=== PATIENT | female | born 1950 | race Caucasian/White ===

== ENCOUNTER 2017-12-28 07:22 | Inpatient (IN) | payer MEDICARE, OTHER ==
[2017-12-28] VITALS (7 sets, daily range): BP systolic 142–166; BP diastolic 60–73
[~2017-12-28] VITALS: Ht 167.6 cm; Wt 88.2 kg
--- NOTE | ~2017-12-28 | PR ---
[place], [place] PROGRESS NOTE [id number] UNIT #: [id number] ROOM: 416 DOCTOR: FILIBERTO ALLISON MD BIRTHDATE: [birth year] DOS: 12/29/2017 CARDIOLOGY PROGRESS NOTE SUBJECTIVE: The patient was seen at her bedside today 12/29/2017 for followup of an acute exacerbation of chronic systolic congestive heart failure. She is a 67-year-old woman who has a long history of dilated cardiomyopathy. I have reviewed records from her physician [facility] [place], Dr. Quiroz, who states that she had an ejection fraction of 45% earlier this year. She went on vacation in [place] and developed heart failure. Her ejection fraction was 25%. She did undergo catheterization and he reports that she had no coronary disease. She was placed on guideline-directed medical therapy, but her ejection fraction and heart failure did not improve dramatically, so recently, she was placed on Entresto. She was doing reasonably well until the current admission. She was at a green party and ate a lot of salty foods. She developed increased heart failure symptoms and came to the hospital for management. Overnight, she has diuresed and is breathing much better. I also recommended that her Entresto dose be increased. PHYSICAL EXAMINATION: VITAL SIGNS: Her pulse is 81 and regular, blood pressure 155/51. She is afebrile. NECK: Supple. She has no jugular distention. Carotids are full. LUNGS: Respirations are unlabored. Chest is clear. HEART: Has a regular rhythm. She has an S4 gallop. I did not hear an S3. ABDOMEN: Soft and normally active. EXTREMITIES: Showed no edema. IMPRESSION: 1. Acute on chronic systolic congestive heart failure. Exacerbation was likely triggered by dietary indiscretion over the last 24 hours. 2. Dilated cardiomyopathy, presumably nonischemic based on the patient's report and a report of her zipper slide attacher regarding a catheterization that she had in [place]. 3. Chronic left bundle-branch block. 4. Ejection fraction reportedly between 25 and 30%. 5. Essential hypertension. 6. Hyperlipidemia. 7. Type 2 diabetes mellitus. PLAN: I am told that overnight her monitor showed a change. She has a left bundle-branch block. Monitored tracings are notoriously unreliable for ST changes. The subsequent EKG did not show any changes. Even if it had, left bundle-branch block will not allow specific diagnostic conclusions regarding ischemia. They did check troponin levels, which were normal. From my perspective, she may be discharged to home on her previous dose of diuretic, but on a larger dose of Entresto. I did ask her to follow up with her zipper slide attacher at the [facility] in [place] and we will remain available to see [place], [place] PROGRESS NOTE NAME: NANDINI SCHWAB UNIT #: [id number] ROOM: [facility] DOCTOR: FILIBERTO ALLISON MD BIRTHDATE: [birth year] her if needed. I thank the hospitalist physicians for asking our advice regarding her care. FILIBERTO ALLISON MD CM:PNTRANS 11 [id number] FILIBERTO ALLISON MD 12/29/171907 interface
--- NOTE | ~2017-12-28 | EKG ---
[place], [place] ELECTROCARDIOGRAM REPORT NAME: NANDINI SCHWAB UNIT #: [id number] ROOM: 416 DOCTOR: JAMES DRAFT REPORT BIRTHDATE: [birth year] [facility] Test Date: 2017-12-28 Test Time: 10:37:57 Pat Name: NANDINI SCHWAB Department: Room: 416 Gender: F Food Service Technician: Kenzie Nam : 1950 Requested By: DANIEL WORTHY Order Number: [id number] Reading MD: Olvin Allen MD Measurements Intervals [place] Rate: 72 P: 51 VT: 173 QRS: -21 QRSD: 179 T: 116 QT: 455 QTc: 499 Interpretive Statements Sinus rhythm Probable left atrial enlargement Left bundle branch block Compared to previous tracing this date Sinus tachycardia is no longer present Electronically Signed On 12-28-2017 19:09:39 PDT by Olvin Allen MD CM:EKGRPT:ELECTROCARDIOGRAM REPORT [id number] DANIEL MAYO DRAFT REPORT DANIEL WORTHY DO
--- NOTE | ~2017-12-28 | EKG ---
[place], [place] ELECTROCARDIOGRAM REPORT NAME: NANDINI SCHWAB UNIT #: [id number] ROOM: 416 DOCTOR: JAMES DRAFT REPORT BIRTHDATE: [birth year] [facility] Test Date: 2017-12-28 Test Time: 13:20:27 Pat Name: NANDINI SCHWAB Department: Room: 416 Gender: F Cda Teacher: Kenzie Nam : 1950 Requested By: DANIEL WORTHY Order Number: [id number] Reading MD: Olvin Allen MD Measurements Intervals [place] Rate: 74 P: 23 HI: 182 QRS: -20 QRSD: 177 T: 112 QT: 450 QTc: 500 Interpretive Statements Sinus rhythm Probable left atrial enlargement Left bundle branch block No change from earlier ECG this date. Electronically Signed On 12-28-2017 19:12:47 PDT by Olvin Allen MD CM:EKGRPT:ELECTROCARDIOGRAM REPORT [id number] DANIEL MAYO DRAFT REPORT DANIEL WORTHY DO
--- NOTE | ~2017-12-28 | CON ---
[place], [place] REPORT OF CONSULTATION NAME: NANDINI SCHWAB UNIT #: [id number] ROOM: 416 DOCTOR: FILIBERTO ALLISON MD BIRTHDATE: [birth year] DOS: 12/28/2017 REASON FOR CONSULTATION: Dyspnea and chest discomfort. HISTORY OF PRESENT ILLNESS: The patient is a 67-year-old woman who is previously unknown to [facility]. She states that she was in her normal state of health until 07/2017. While on vacation in [place] she developed chest discomfort and was hospitalized. An echocardiogram reportedly showed poor left ventricular function. Catheterization was performed and the patient was told that she did not have any coronary disease. She returned to the local area and is followed by Dr. Quiroz at the [facility]. She has been placed on guideline directed medical therapy for poor LV function and plans are being made for her to undergo placement of a defibrillator in the future. The patient was doing well until yesterday. She was at a republican and ate a lot of salty food. She felt that she could "cheat for 1 day." She awakened at 4:00 a.m. with dyspnea and chest discomfort and presented to the Emergency Room where she was found to be in heart failure. She was admitted for further management. She is being diuresed. Thus far, troponin levels are normal. Her electrocardiogram shows a left bundle branch block, which apparently has been present for some time now. PAST MEDICAL HISTORY: Includes 1. Hypertension. 2. Hyperlipidemia. 3. Type 2 diabetes mellitus. 4. Heart failure documented while on vacation in [place], [place]. The patient reportedly had a catheterization which showed normal coronary arteries at that time. 5. Obesity. 6. Sleep apnea. 7. Chronic systolic congestive heart failure with acute exacerbation, prompting current admission. 8. Possible COPD. 9. History of partial hysterectomy and tonsillectomy. MEDICATIONS: Prior to admission, Symbicort 2 puffs q.12 hours, aspirin 81 mg daily, cholecalciferol 1000 units daily, citalopram 20 mg daily, fenofibrate 145 mg daily, furosemide 20 mg p.o. daily, lansoprazole 30 mg daily, metformin 1000 mg b.i.d., metoprolol 25 mg daily, multivitamin with minerals daily, omega 3 fish oil daily and spironolactone 25 mg daily. ALLERGIES: The patient has no known drug allergies. REVIEW OF SYSTEMS: The patient denies diplopia or loss of vision. She denies focal weakness. She denies lightheadedness or syncope. She does have dyspnea with modest exertion, which got worse in the last 24 hours. She denies any focal weakness. She denies fevers, chills, sweats or recent weight change. She denies orthopnea or PND. She denies nausea or vomiting. She denies hemoptysis [place], [place] REPORT OF CONSULTATION NAME: NANDINI SCHWAB UNIT #: [id number] ROOM: 416 DOCTOR: FILIBERTO ALLISON MD BIRTHDATE: [birth year] or hematemesis. She denies any blood in her stools or urine. She denies any change in bowel or bladder habits. She denies heat or cold intolerance and denies polyuria or polydipsia. She does have leg swelling chronically. The remainder of the review of systems is negative except as noted above. FAMILY HISTORY: Negative for early coronary artery disease. Her father did have a heart attack in his 40s or 50s. Her mother of complications of diabetes, hypertension and breast cancer. SOCIAL HISTORY: The patient is a . She does not consume alcohol and never smoked. She does not use illegal drugs. PHYSICAL EXAMINATION: GENERAL: The patient is an overweight white female who is awake, alert and oriented. VITAL SIGNS: Pulse is 78 and regular, blood pressure is 166/65. She is afebrile. She weighs 88.2 kg and has a body mass index of 31.4. HEENT: Normocephalic, atraumatic. Extraocular muscles are intact. Sclerae are clear. Pupils equal, round and react to light. The oral mucosa is moist. Tongue is midline. NECK: Supple. She has jugular venous distention with hepatojugular reflux when sitting at a 45 degree angle. She has no neck or supraclavicular masses, no thyromegaly. RESPIRATORY: Respirations are unlabored. Her chest is clear to auscultation and percussion. She has no presacral edema or chest wall tenderness. CARDIOVASCULAR: Her heart has a regular rhythm. She has an S4 gallop and a soft S3. She has grade 2/6 holosystolic murmur at the apex. No diastolic murmurs are present. The PMI is not displaced. There is no precordial heave, lift or thrill. ABDOMEN: Soft and normally active without masses, organomegaly or bruits. EXTREMITIES: Showed 2+ edema bilaterally. Peripheral pulses are palpable bilaterally in the feet. I reviewed her electrocardiogram, which showed sinus rhythm with a left bundle branch block. Chest x-ray showed moderate congestive heart failure with mild to moderate cardiomegaly. A CT scan of the chest showed no evidence for pulmonary embolism. There are small to moderate pleural effusions, right greater than left. She has ground glass opacities of both lungs, probably due to heart failure. IMPRESSIONS: 1. Acute on chronic systolic congestive heart failure based on the patient's history, this is likely brought on by her dietary indiscretion over the last 24 hours. 2. Dilated cardiomyopathy, presumably nonischemic based on the patient's report of her catheterization. 3. Left bundle branch block. 4. Reportedly, a low ejection fraction between 25 and 30%. 5. Essential hypertension. [place], [place] REPORT OF CONSULTATION NAME: NANDINI SCHWAB UNIT #: [id number] ROOM: 416 DOCTOR: FILIBERTO ALLISON MD BIRTHDATE: [birth year] 6. Hyperlipidemia. 7. Type 2 diabetes mellitus. PLAN: The patient is already on guideline directed medical therapies. At this point, I would stop her amlodipine and increase her dose of Entresto. I would continue her beta blockers and try to titrate them up as well. If she does not respond appropriately to maximally tolerated guideline directed medical therapy, then insertion of a biventricular ICD would be reasonable to assist with cardiac resynchronization as well as help prevent sudden cardiac . The patient is already being followed by the physicians at the [facility] in [place]. For now, we will diurese her intravenously and increase the dose of her Entresto. We will stop amlodipine. Once she is stabilized, she will be discharged to home for followup with her physicians at the [facility]. [facility] and I thank the hospitalist physicians for asking our advice regarding the patient's care. FILIBERTO ALLISON MD CM:CONSTR:REPORT OF CONSULTATION 1932 12/29/17 0229 interface
--- NOTE | ~2017-12-28 | EKG ---
[place], [place] ELECTROCARDIOGRAM REPORT NAME: NANDINI SCHWAB UNIT #: [id number] ROOM: 416 DOCTOR: JAMES DRAFT REPORT BIRTHDATE: [birth year] [facility] Test Date: 2017-12-29 Test Time: 01:40:49 Pat Name: NANDINI SCHWAB Department: Room: 416 2 Gender: F Care Navigator: FELICIA : 1950 Requested By: BRAULIO HARVEY Order Number: [id number] Reading MD: Olvin Allen MD Measurements Intervals [place] Rate: 69 P: 44 AR: 192 QRS: -15 QRSD: 184 T: 134 QT: 451 QTc: 484 Interpretive Statements Sinus rhythm Multiple premature complexes, vent \T\ supraven Left bundle branch block Compared to ECG 12/28/2017 13:20:27 No significant changes Electronically Signed On 12-29-2017 8:38:58 PDT by Olvin Allen MD CM:EKGRPT:ELECTROCARDIOGRAM REPORT [id number] BRAULIO MAYO DRAFT REPORT BRAULIO HARVEY DO
[2017-12-28 07:35] LABS: BASO % 0.4 % (0.0-1.0); EOS % 0.4 % (1.0-4.0); HEMATOCRIT 37.1 % (37.0-47.0); HEMOGLOBIN 12.4 g/dl (12.0-16.0); LYMPH # 2.1 10*3/uL (1.3-4.4); LYMPH % 20.5 % (27.0-41.0); MEAN CELL VOLUME 87.7 fl (81.0-99.0); MEAN CORPUSCULAR HGB 29.3 pg (27.0-31.0); MEAN CORPUSCULAR HGB CONC 33.4 g/dl (33.0-37.0); MEAN PLATELET VOLUME 10.7 fl (9.6-12.3); MONO # 0.5 10*3/uL (0.1-1.0); MONO % 4.4 % (3.0-9.0); NEUT # 7.6 10*3/uL (2.3-7.9); PLATELET COUNT AUTOMATED 243 10*3/uL (130-400); RED BLOOD COUNT 4.23 10*6/uL (4.10-5.10); RED CELL DISTRI WIDTH 13.2 % (0-14.5); WHITE BLOOD COUNT 10.2 10*3/uL (4.8-10.8)
[2017-12-28 07:43] LABS: ACT PARTIAL THROMBO TIME 29.8 SECONDS (20.8-31.5)
[2017-12-28 07:51] LABS: ALBUMIN 3.9 gm/dl (3.1-4.5); ALKALINE PHOSPHATASE 54 U/L (45-117); BUN 20 mg/dl (7-24); CHLORIDE 101 mmol/L (98-107); CREATININE 0.95 mg/dL (0.55-1.02); POTASSIUM 4.3 mmol/L (3.5-5.1); SGOT/AST 21 IU/L (3-35); SGPT/ALT 27 U/L (12-78); SODIUM 134 mmol/L (136-145); TOTAL PROTEIN 7.3 gm/dL (6.4-8.2); TROPONIN I < 0.015 ng/ml (<0.045)
[2017-12-28] MEDS ORDERED: ASPIRIN CHEWABL81 MG PO (10:43)
[2017-12-28] MEDS ORDERED: ENTRESTO 24 MG1 EACH PO ×2 (10:43→21:23)
[2017-12-28] MEDS ORDERED: CITALOPRAM20 MG PO (10:43)
[2017-12-28] MEDS ORDERED: FENOFIBRATE145 M1 PO (10:44)
[2017-12-28] MEDS ORDERED: FISH OIL 1,0001 EAC4 PO (10:44)
[2017-12-28] MEDS ORDERED: LASIX20 MG PO (10:44)
[2017-12-28] MEDS ORDERED: GLUCOPHAGE1000 MG PO (10:45)
[2017-12-28] MEDS ORDERED: SYMB160 INH (10:45)
[2017-12-28] MEDS ORDERED: NORVASC2.5 MG PO (10:46)
[2017-12-28] MEDS ORDERED: MULTIPLE VITAM1 EAC1 PO (10:46)
[2017-12-28] MEDS ORDERED: METOPROLOL SUCC25 M2 PO (10:46)
[2017-12-28] MEDS ORDERED: PREVACID30 M2 PO (10:47)
[2017-12-28] MEDS ORDERED: ALDACTONE25 M1 PO (10:47)
[2017-12-28] MEDS ORDERED: VITAMIN D31000 UNI1 PO (10:49)
[2017-12-28 18:30] LABS: URINE AMPHETAMINES < 1000 (1000ng/ml); URINE BARBITURATES < 200 (200ng/ml); URINE BENZODIAZEPINES < 200 (200ng/ml); URINE CANNABINOIDS (THC) < 50 (50ng/ml); URINE COCAINE < 300 (300ng/ml); URINE METHADONE < 300 (300ng/ml); URINE OPIATES < 300 (300ng/ml)
[2017-12-28 18:39] LABS: URINE PHENCYCLIDINE < 25 (25ng/ml)
[2017-12-29] VITALS: BP 138/82
[2017-12-29 02:09] VITALS: BP 140/54
[2017-12-29 06:28] LABS: BASO % 0.5 % (0.0-1.0); EOS # 0.1 10*3/uL (0.0-0.4); EOS % 1.7 % (1.0-4.0); HEMATOCRIT 32.3 % (37.0-47.0); HEMOGLOBIN 10.6 g/dl (12.0-16.0); LYMPH # 1.3 10*3/uL (1.3-4.4); LYMPH % 32.6 % (27.0-41.0); MEAN CORPUSCULAR HGB 29.2 pg (27.0-31.0); MEAN CORPUSCULAR HGB CONC 32.8 g/dl (33.0-37.0); MEAN PLATELET VOLUME 10.9 fl (9.6-12.3); MONO # 0.3 10*3/uL (0.1-1.0); MONO % 8.5 % (3.0-9.0); NEUT # 2.3 10*3/uL (2.3-7.9); NEUT % 56.5 % (47.0-73.0); PLATELET COUNT AUTOMATED 196 10*3/uL (130-400); RED BLOOD COUNT 3.63 10*6/uL (4.10-5.10); RED CELL DISTRI WIDTH 13.2 % (0-14.5)
[2017-12-29 06:30] LABS: ALBUMIN 3.2 gm/dl (3.1-4.5); ALKALINE PHOSPHATASE 30 U/L (45-117); BUN 17 mg/dl (7-24); CHLORIDE 102 mmol/L (98-107); CHOLESTEROL 105 mg/dL (<200); CREATININE 0.83 mg/dL (0.55-1.02); PHOSPHOROUS 4.2 mg/dL (2.5-4.9); POTASSIUM 3.7 mmol/L (3.5-5.1); SGOT/AST 16 IU/L (3-35); SGPT/ALT 22 U/L (12-78); SODIUM 137 mmol/L (136-145); TOTAL PROTEIN 6.4 gm/dL (6.4-8.2); TRIGLYCERIDES 67 mg/dl (<150); VLDL CHOLESTEROL 13 mg/dL (6-40)
[2017-12-29 06:34] LABS: HDL CHOLESTEROL 49 mg/dl (40-60); LDL CHOLESTEROL 43 mg/dL (9-159); THYROID STIM HORMONE (HS) 0.868 uIU/ml (0.358-4.75)
[2017-12-29 07:29] LABS: VITAMIN D, 25-HYDROXY 31.7 ng/mL (30-100)
[2017-12-29 08:00] VITALS: BP 155/53
[2017-12-29 12:00] VITALS: BP 149/69
[2017-12-29 16:00] VITALS: BP 155/51
[2017-12-29 20:00] VITALS: BP 151/57
[2017-12-30] VITALS: BP 145/52
[2017-12-30 06:29] LABS: BASO % 0.5 % (0.0-1.0); HEMATOCRIT 33.5 % (37.0-47.0); HEMOGLOBIN 11.3 g/dl (12.0-16.0); LYMPH # 1.3 10*3/uL (1.3-4.4); LYMPH % 32.7 % (27.0-41.0); MEAN CELL VOLUME 88.2 fl (81.0-99.0); MEAN CORPUSCULAR HGB 29.7 pg (27.0-31.0); MEAN CORPUSCULAR HGB CONC 33.7 g/dl (33.0-37.0); MEAN PLATELET VOLUME 11.1 fl (9.6-12.3); MONO # 0.4 10*3/uL (0.1-1.0); MONO % 9.1 % (3.0-9.0); NEUT # 2.3 10*3/uL (2.3-7.9); NEUT % 56.5 % (47.0-73.0); PLATELET COUNT AUTOMATED 221 10*3/uL (130-400); RED CELL DISTRI WIDTH 13.2 % (0-14.5); WHITE BLOOD COUNT 4.1 10*3/uL (4.8-10.8)
[2017-12-30 06:38] LABS: ALBUMIN 3.4 gm/dl (3.1-4.5); ALKALINE PHOSPHATASE 33 U/L (45-117); BUN 24 mg/dl (7-24); CHLORIDE 100 mmol/L (98-107); CREATININE 0.94 mg/dL (0.55-1.02); POTASSIUM 3.6 mmol/L (3.5-5.1); SGOT/AST 13 IU/L (3-35); SGPT/ALT 19 U/L (12-78); SODIUM 137 mmol/L (136-145); TOTAL PROTEIN 6.8 gm/dL (6.4-8.2)
[2017-12-30 08:00] VITALS: BP 154/61
[2017-12-30] MEDS ORDERED: ENTRESTO 24 MG1 EACH PO (11:28)
== END 2017-12-30 11:57 | disposition home or self-care (01) | DRG 291 ==
LOC: ED 07:22 → EDHOLD 08:22 → 4E 08:22
PROVIDERS: Internal Medicine; Student in an Organized Health Care Education/Training Program
DX: I11.0 Hypertensive heart disease with heart failure (principal); J18.9 Pneumonia, unspecified organism; E87.1 Hypo-osmolality and hyponatremia; R65.10 Systemic inflammatory response syndrome (SIRS) of non-infectious origin without acute organ dysfunction; J90 Pleural effusion, not elsewhere classified; I50.23 Acute on chronic systolic (congestive) heart failure; I42.0 Dilated cardiomyopathy; J44.9 Chronic obstructive pulmonary disease, unspecified; K21.9 Gastro-esophageal reflux disease without esophagitis; F32.9 Major depressive disorder, single episode, unspecified; G47.30 Sleep apnea, unspecified; I44.7 Left bundle-branch block, unspecified; E11.65 Type 2 diabetes mellitus with hyperglycemia; R00.0 Tachycardia, unspecified; D72.810 Lymphocytopenia; R07.9 Chest pain, unspecified; E78.5 Hyperlipidemia, unspecified; E11.9 Type 2 diabetes mellitus without complications; E66.9 Obesity, unspecified; Z90.710 Acquired absence of both cervix and uterus; Z79.84 Long term (current) use of oral hypoglycemic drugs; Z79.82 Long term (current) use of aspirin; Z79.899 Other long term (current) drug therapy; Z82.49 Family history of ischemic heart disease and other diseases of the circulatory system; Z83.3 Family history of diabetes mellitus; Z85.3 Personal history of malignant neoplasm of breast; I25.2 Old myocardial infarction; Z68.31 Body mass index [BMI] 31.0-31.9, adult; M94.0 Chondrocostal junction syndrome [Tietze]; F41.9 Anxiety disorder, unspecified

== ENCOUNTER 2021-04-23 15:17 | Emergency (ER) | payer MEDICARE, OTHER ==
[~2021-04-23] VITALS: Ht 167.6 cm; Wt 87.1 kg
[~2021-04-23 15:17] MED LIST: ALDACTONE25 M1 PO; ASPIRIN CHEWABL81 MG PO; CITALOPRAM20 MG PO; ENTRESTO 24 MG1 EACH PO; FENOFIBRATE145 M1 PO; FISH OIL 1,0001 EAC4 PO; GLUCOPHAGE1000 MG PO; LASIX20 MG PO; METOPROLOL SUCC25 M2 PO; MULTIPLE VITAM1 EAC1 PO; NORVASC2.5 MG PO; PREVACID30 M2 PO; SYMB160 INH; VITAMIN D31000 UNI1 PO
[2021-04-23 16:37] LABS: BASO % 0.4 % (0.0-1.0); EOS # 0.2 10*3/uL (0.0-0.4); EOS % 3.5 % (1.0-4.0); HEMATOCRIT 23.8 % (37.0-47.0); LYMPH # 0.9 10*3/uL (1.3-4.4); MEAN CELL VOLUME 91.9 fl (81.0-99.0); MEAN CORPUSCULAR HGB 30.9 pg (27.0-31.0); MEAN CORPUSCULAR HGB CONC 33.6 g/dl (33.0-37.0); MEAN PLATELET VOLUME 9.7 fl (9.6-12.3); MONO # 0.4 10*3/uL (0.1-1.0); MONO % 8.6 % (3.0-9.0); NEUT # 3.5 10*3/uL (2.3-7.9); NEUT % 68.9 % (47.0-73.0); PLATELET COUNT AUTOMATED 168 10*3/uL (130-400); RED BLOOD COUNT 2.59 10*6/uL (4.10-5.10); RED CELL DISTRI WIDTH 15.6 % (0-14.5); WHITE BLOOD COUNT 5.1 10*3/uL (4.8-10.8)
[2021-04-23 16:54] LABS: ALBUMIN 3.8 gm/dl (3.1-4.5); CREATININE 2.66 mg/dL (0.55-1.02); POTASSIUM 4.8 mmol/L (3.5-5.1); TOTAL PROTEIN 7.3 gm/dL (6.4-8.2)
== END 2021-04-23 18:39 | disposition home or self-care (01) ==
LOC: ED 15:17
PROVIDERS: Nurse Practitioner Family
DX: S30.1XXA Contusion of abdominal wall, initial encounter (principal); K57.92 Diverticulitis of intestine, part unspecified, without perforation or abscess without bleeding; N19 Unspecified kidney failure; J32.9 Chronic sinusitis, unspecified; J44.9 Chronic obstructive pulmonary disease, unspecified; I25.2 Old myocardial infarction; I10 Essential (primary) hypertension; E11.9 Type 2 diabetes mellitus without complications; Z79.82 Long term (current) use of aspirin; Z79.899 Other long term (current) drug therapy; Z98.890 Other specified postprocedural states; Z90.89 Acquired absence of other organs; Z88.8 Allergy status to other drugs, medicaments and biological substances; Z90.710 Acquired absence of both cervix and uterus; W06.XXXA Fall from bed, initial encounter; Y93.89 Activity, other specified; Y92.89 Other specified places as the place of occurrence of the external cause; Y99.8 Other external cause status

== ENCOUNTER 2025-03-07 05:56 | Emergency (ER) | payer MEDICARE, OTHER ==
[~2025-03-07] VITALS: Ht 165.1 cm; Wt 90.7 kg
[~2025-03-07 05:56] MED LIST changes: +8 HOUR650 MG PO; +ALDACTONE25 MG PO; +ALDACTONE50 M1 PO; +ALLOPURINOL100 MG PO; +AMLODIPINE BESYL5 MG PO; +APRESOLINE25 MG PO; +ASCORBIC ACID500 M2 PO; +BUMETANIDE1 MG PO; +BUMETANIDE2 MG PO; +CELEXA20 MG PO; +CLONIDINE HCL0.2 MG PO; +COREG25 MG PO; +DIOVAN320 MG PO; +ELIQUIS5 M1 PO; +FERRETTS325 M1 PO; +GLUCOTROL XL2.5 MG PO; +HYDRALAZINE HC100 MG PO; +HYGROTON25 MG PO; +IMODIUM A-D2 M2 PO; +ISOSORBIDE DINI30 MG PO; +LEVOFLOXACIN500 MG PO; +LEVOFLOXACIN750 M2 PO; +LISINOPRIL10 M1 PO; +NEURONTIN100 MG PO; +OMNICEF300 MG PO; +OXYCODONE5 M1 PO; +PROCARDIA XL90 MG PO; +RENA-VITE1 TAB PO; +ROPINIROLE HYD0.5 MG PO; +ROPINIROLE HYDRO2 M1 PO; +ROPINIROLE HYDRO2 M2 PO; +SPIRONOLACTONE50 M1 PO; +TORSEMIDE20 MG PO; +TRAZODONE50 MG PO; +TRICOR145 M1 PO; +VELPHORO500 M1 PO; +VITAMIN D350 MC2 PO; +ZITHROMAX250 MG PO
[2025-03-07] MEDS ORDERED: PERCOCET 5-3251 EACH PO (06:28)
== END 2025-03-07 07:32 | disposition home or self-care (01) ==
LOC: ED 05:56
DX: S42.032A Displaced fracture of lateral end of left clavicle, initial encounter for closed fracture (principal); Z88.0 Allergy status to penicillin; Z88.8 Allergy status to other drugs, medicaments and biological substances; Z79.899 Other long term (current) drug therapy; Z79.84 Long term (current) use of oral hypoglycemic drugs; Z90.710 Acquired absence of both cervix and uterus; Z90.89 Acquired absence of other organs; Z95.0 Presence of cardiac pacemaker; W05.0XXA Fall from non-moving wheelchair, initial encounter; Y93.89 Activity, other specified; Y92.89 Other specified places as the place of occurrence of the external cause; Y99.8 Other external cause status